=== PATIENT | male | born 1950 | race Caucasian/White ===

== ENCOUNTER 2016-10-04 13:49 | Observation (INO) | payer BC ==
--- NOTE | ~2016-10-04 | DS ---
Discharge Summary [facility] [address] [place]. [address] NAME: DANA SOSA : 50 STATUS : DIS Bautista PAT#: [id number] AGE: 66 ADM/REG DATE : 10/04/16 MR#: [id number] REPORT SERV DATE: 10/06/16 DICTATED BY: PHIL SANDERS DATE: 10/05/16 REPORT STATUS : Draft TRANSCRIBED BY: MODL DATE: 10/05/16 ADMISSION DATE: 10/04/2016 DISCHARGE DATE: 10/05/2016 DISCHARGE DIAGNOSES: 1. Uncontrolled hypertension, mainly secondary to noncompliance. 2. Uncontrolled anxiety and depression. 3. Unintentional weight loss due to poor appetite probably related to the depression above. 4. Coronary artery disease. 5. Peripheral artery disease. 6. Chronic obstructive pulmonary disease. 7. Continued smoking. 8. Chronic kidney disease that is at baseline with creatinine of 1.75. CONSULTANTS: Psychiatry. PROCEDURES: None. HOSPITAL COURSE: This is a 66-year-old gentleman who was admitted to the hospital with uncontrolled hypertension as well as uncontrolled depression and anxiety. For details please refer to my own H and P dictated yesterday. In summary, the patient was admitted and was started on p.r.n. antihypertensives along with his home diltiazem. At baseline, patient is intolerant to a lot of the antihypertensives that was given to him in the past, and he simply decided not to take them. The patient is intolerant to KIMBERLY or ARB due to his renal function, and the patient has been tolerant to clonidine because it makes him feel woozy. The patient is also intolerant to beta-sonia therapy because it tears up his stomach. The patient thankfully tolerated hydralazine and thus patient will be discharged home on hydralazine. The patient does already have Coreg prescriptions at home that he will give a try. The bigger issue was the patient had an uncontrolled depression along with uncontrolled chronic back pain. The uncontrolled back pain seem to be related to his uncontrolled depression. The patient was seen by Psychiatry who stopped his nightly temazepam and started him on 0.25 mg of Xanax in the morning and 0.5 mg of Xanax before bed. From my end, I have discontinued his [place], and we will start him on Percocet instead. The patient in general was quite anxious and required a lot of reassurance and counseling. The patient was also counseled against continued smoking. The patient understands that a lot of his ongoing issues will be better managed as an outpatient. The patient already has an appointment with his PCP early next week, and he understands that long-term follow up is more important than short-term relief. I recommended the patient to follow up not only with PCP but potentially establish care with a spine surgery as well as Psychiatry as an outpatient and possibly pain management. The patient otherwise did not have any other acute medical issues. The patient's labs have been stable to include CBC and electrolytes as well as pre-albumin level, TSH, and inflammatory markers. The patient is now being discharged home with close outpatient followup instructions. DISCHARGE MEDICATIONS: Discharge Summary [address] [address] NAME: DANA SOSA : 50 STATUS : DIS Bautista PAT#: [id number] AGE: 66 ADM/REG DATE : 10/04/16 MR#: [id number] REPORT SERV DATE: 10/06/16 DICTATED BY: PHIL SANDERS DATE: 10/05/16 REPORT STATUS : Draft TRANSCRIBED BY: KODY DATE: 10/05/16 1. Hydralazine 50 mg p.o. q.8 hours. 2. Percocet 7.5/325 one tab p.o. q.[address] of Vicodin 7.5/325. The patient will be given a total of 20 tablets. 3. Xanax 0.25 mg in the morning and 0.5 mg in the evening as recommended by Psychiatry. The patient will be given 2 week supply. This will be in place of temazepam that he was already taking at home. Otherwise, no changes to his medications. FOLLOWUP: Please follow up with PCP in the next one to two weeks, again the patient already has an appointment with his PCP early next week. Total of almost an hour spent in coordinating this patient's discharge today including more than 30 minutes that I spent counseling the patient. CHRISTINE/KODY Phil Sanders MD / [id number] CC: MD Heaven Walters M.D.
--- NOTE | ~2016-10-04 | HP ---
History And Physical [address] [place]. [address] NAME: DANA SOSA : 50 STATUS : ADM Bautista PAT#: [id number] AGE: 66 ADM/REG DATE : 10/04/16 MR#: [id number] REPORT SERV DATE: 10/04/16 DICTATED BY: PHIL SANDERS DATE: 10/04/16 REPORT STATUS : Draft TRANSCRIBED BY: MODL DATE: 10/04/16 DATE OF ADMISSION: 10/04/2016 CHIEF COMPLAINT: Uncontrolled depression and uncontrolled hypertension. HISTORY OF PRESENT ILLNESS: This is a 66-year-old gentleman with history of hypertension, COPD, smoking, coronary artery disease, peripheral artery disease amongst many other medical problems, presenting with an uncontrolled hypertension and an uncontrolled depression. The patient reports that it has been an ongoing issue for the past several months. The patient feels that he has really been depressed since he was last hospitalized back in March of 2016 for uncontrolled hypertension. The patient was tried on Zoloft as well as Remeron without much response. The patient feels that he also takes temazepam on nightly basis and it actually helps with his depression a lot, and after his on-line research, he feels that he needs to be on benzodiazepine on daily basis to help with his depression and to improve his baseline functional status. The patient reports that with the depression, the patient has had poor appetite and has lost about 15 pounds since April unintentionally. The patient also has some insomnia. In terms of his blood pressure, the patient reports that he has not been compliant with his blood pressure medications, mainly because they hurt his stomach. The patient does not take Coreg and the patient also does not take his clonidine patch. The patient takes Cardizem as the only means to control his blood pressures. The patient is not tolerant to hydrochlorothiazide or lisinopril. The patient, otherwise, has not tried any other antihypertensives. The patient also has multiple other complaints including chronic back pain that he has had for 48 years. The patient feels that it has gotten worse since he hurt it during a cardiac cath while he was being moved from the operating table to his bed that was about six months ago. The patient feels that the poorly controlled back pain makes him more depressed. The patient is on Vicodin at baseline to control his pain. In the ER, the patient was found to be afebrile. The patient was found to be quite hypertensive with blood pressure 202/114. By the time of my encounter with the patient, the patient's blood pressure was down to 162/98. The patient was also quite tachycardic upon arrival with heart rate of 127, but that improved to 95 by the time of my encounter with the patient. Initial lab evaluation was all very benign. Internal Medicine consultation was requested for admission of the patient for further evaluation and care. REVIEW OF SYSTEMS: The patient denies any fevers or chills. Also, 14-point review of systems reviewed and negative other than mentioned above. MEDICATIONS: Medication list is still pending at this time. PAST MEDICAL HISTORY: 1. Hypertension. 2. Coronary artery disease. 3. Peripheral artery disease. History And Physical [address] [address] NAME: DANA SOSA : 50 STATUS : ADM Bautista PAT#: [id number] AGE: 66 ADM/REG DATE : 10/04/16 MR#: [id number] REPORT SERV DATE: 10/04/16 DICTATED BY: PHIL SANDERS DATE: 10/04/16 REPORT STATUS : Draft TRANSCRIBED BY: MODAsaf DATE: 10/04/16 4. Chronic kidney disease with baseline creatinine of 1.75. 5. COPD. 6. Continued smoking. 7. History of CVA. 8. Chronic pain management. 9. BPH. PAST SURGICAL HISTORY: 1. Bilateral carotid endarterectomy. 2. Renal artery stents. 3. Cardiac stents x5. FAMILY HISTORY: Noncontributory and negative. SOCIAL HISTORY: The patient has a [id number] history of smoking, but he continues to smoke. The patient does not drink alcohol or use any illicit drugs. PHYSICAL EXAMINATION: VITAL SIGNS: Temperature 98.0, blood pressure 162/98, pulse 95, respiratory rate is 20, and saturating 95% on room air. GENERAL: The patient is alert and oriented x3 with no focal neurologic deficits. The patient is awake. He is quite irritable, but otherwise, does not appear to be in acute distress, and he is cooperative. NECK: No JVD. No lymphadenopathy. Normal thyroid. CHEST: No midline sternotomy scar and no tenderness to palpation. LUNGS: Clear to auscultation bilaterally with normal respiratory effort on room air. CARDIOVASCULAR: Regular rate and rhythm, slightly tachycardic, but otherwise, no murmurs, rubs, or gallops, and PMI is nondisplaced. ABDOMEN: Soft and nontender with active bowel sounds and no organomegaly. EXTREMITIES: No edema. Normal distal pulses. No calf tenderness. SKIN: Clean, dry, warm, and intact. LABORATORY DATA: Sodium is 137, potassium 4.1, chloride 104, BUN 17, creatinine 1.75, glucose 103, calcium 9.4, and magnesium 2.3. White blood cell count is 10.1, hemoglobin 15.3, and platelets 235. INR is 0.9. Troponin is 0.19. ASSESSMENT: This is a 66-year-old gentleman with history of hypertension, coronary artery disease, peripheral artery disease, chronic kidney disease, amongst many other medical conditions, presenting with uncontrolled hypertension and uncontrolled depression. 1. Uncontrolled hypertension, mainly secondary to noncompliance. The patient has been intolerant to many antihypertensives and the patient has not been taking many of his antihypertensive medications with complaints of not being able to tolerate it due to either stomach issues or feeling lousy. 2. Uncontrolled depression. The patient has tried Zoloft and Remeron without response. 3. Unintentional weight loss due to poor appetite. This is likely related to the uncontrolled depression. 4. Coronary artery disease. History And Physical [address] [address] NAME: DANA SOSA : 50 STATUS : ADM Bautista PAT#: [id number] AGE: 66 ADM/REG DATE : 10/04/16 MR#: [id number] REPORT SERV DATE: 10/04/16 DICTATED BY: PHIL SANDERS DATE: 10/04/16 REPORT STATUS : Draft TRANSCRIBED BY: MODL DATE: 10/04/16 5. Peripheral artery disease artery disease. 6. Chronic obstructive pulmonary disease. 7. Continued smoking. 8. Chronic kidney disease, that is at baseline. PLAN: My plan is to admit the patient under observation overnight. The patient will be monitored under telemetry. The patient's blood pressure is already better and I will continue to monitor his blood pressure and treat as needed. For the uncontrolled depression, I will ask Psychiatry to come and see the patient. For uncontrolled back pain, I will give additional p.r.n. analgesia. For smoking, extensive counseling provided regarding cessation. Otherwise, for the rest of stable past medical conditions, including coronary artery disease, peripheral artery disease, chronic kidney disease, et al, I will continue home medications. Standard DVT prophylaxis. The patient is full code at this time. YSC/MODL Phil Sanders MD / [id number] CC: Morgan Rodriguez Jr, MD Karin Boeck, M.D.
--- NOTE | ~2016-10-04 | CN ---
Consultation Report [facility] [address] [place]. [address] NAME: DANA SOSA : 50 STATUS : ADM Bautista PAT#: [id number] AGE: 66 ADM/REG DATE : 10/04/16 MR#: [id number] REPORT SERV DATE: 10/05/16 DICTATED BY: NIR CASTAÑEDA DATE: 10/05/16 REPORT STATUS : Draft TRANSCRIBED BY: MODL DATE: 10/05/16 PSYCHIATRIC CONSULTATION DATE OF CONSULTATION: 10/05/2016 I reviewed this patient's current and old medical records. HISTORY OF PRESENT ILLNESS: He was admitted with uncontrolled hypertension and severe depression. Over the past two years or so, he has had three previous admissions to this hospital with hypertensive urgency. He reports that he has been depressed since he had a stroke about one year ago and more severely so since his last admission to this hospital in 03/2016. PAST PSYCHIATRIC HISTORY: He reports that he had a past trial on Zoloft without any benefit. He is currently taking Remeron 30 mg h.s. Again, without apparent benefit. He feels that the temazepam which is prescribed for insomnia is the only medicine that has helped his depression and because of this, he would like to try to take a benzodiazepine on an ongoing basis. He is prescribed hydrocodone APAP b.i.d. for back pain, but he actually takes it only once daily in the morning. He has no history of substance abuse. SOCIAL HISTORY: He has a [employer] business. He reports that he has experienced difficulty with cognition and possibly with dexterity since he had his CVA about one year ago. His and he are trying to keep the business going. He has been for 47 years. He and his have 5 children. FAMILY HISTORY: No psychiatric issues. No history of mood disorders. MENTAL STATUS: He was very cooperative in attitude. He likes to be fully informed about all medical and medication issues. He keeps a fairly extensive folder on his medical history and drug information. His mood was dysphoric. His affect was full and appropriate. His thinking was logical. He had no delusions. He had no hallucinations. He was oriented to time, place, and person. He demonstrated good recent and remote memory. DIAGNOSIS: Depressive disorder, not otherwise specified, post cerebrovascular accident. RECOMMENDATIONS: 1. Continue Remeron 30 mg at bedtime. 2. Discontinue temazepam. 3. Start Xanax 0.25 mg a.m. and 0.5 mg at bedtime. 4. I will follow during this hospitalization. DK/TICOL Consultation Report [facility] [address] [place] [place] [address] NAME: DANA SOSA : 50 STATUS : ADM Bautista PAT#: [id number] AGE: 66 ADM/REG DATE : 10/04/16 MR#: [id number] REPORT SERV DATE: 10/05/16 DICTATED BY: NIR CASTAÑEDA DATE: 10/05/16 REPORT STATUS : Draft TRANSCRIBED BY: KODY DATE: 10/05/16 Nir Castañeda M.D. / [id number] CC: MD Heaven Walters M.D.
[~2016-10-04 13:49] MED LIST: ADVIL PO; ASAB PO; B121000P IM/SC; BEN GAY1.25 OZ TOP; CARDCD180 PO; CARDCD240 PO; CARTIA XT180 MG/24 PO; CAT1 PO; CATAPRES2 TOP; CATAPRES3 TOP; CATPATCH1 TOP; CIP5 PO; COREG25 PO; DIOV80 PO; FISH OIL OTC PO; FLOMAX4 PO; FLONASE NAS; HALF81 PO; LIPITOR40 PO; NICODERM C21 MG/241 TOP; NORCO1 TA1 PO; NORCO1 TA2 PO; NORV10 PO; PLAVIX PO; PROAIR HFA INH; SYMBICORT 160/41 INH INH; VICODIN ES1 TAB PO; VITAMIN B PO
[2016-10-04 15:16] LABS: BASOPHILS 0.2 %; BASOPHILS ABSOLUTE 0.02 10/3/uL (0.0-0.16); EOSINOPHILS 0.6 %; EOSINOPHILS ABSOLUTE 0.06 10/3/uL (0.0-0.53); ER CBC TAT 0 Hrs 07 Mins; HEMATOCRIT 43.1 % (40.0-51.0); HEMOGLOBIN 15.3 g/dL (13.6-17.8); IMMATURE GRANULOCYTES 0.2 %; IMMATURE GRANULOCYTES ABSOLUTE 0.02 10/3/uL (0.0-0.11); LYMPHOCYTES 12.4 %; LYMPHOCYTES ABSOLUTE 1.26 10/3/uL (0.67-4.30); MEAN CORPUS HGB CONC 35.5 g/dL (32.0-36.0); MEAN CORPUSCULAR HEMOGLOB 33.9 pg (26.0-34.0); MEAN CORPUSCULAR VOLUME 95.6 fL (80-100); MEAN PLATELET VOLUME 9.2 fL (9.2-13.0); MONOCYTES 8.3 %; MONOCYTES ABSOLUTE 0.84 10/3/uL (0.21-1.20); NEUTROPHILS 78.3 %; NEUTROPHILS ABSOLUTE 7.94 10/3/uL (2.02-8.40); PLATELET COUNT 235 10/3/uL (150-400); RBC DISTRIBUTION WIDTH 13.4 % (12.0-16.0); RED CELL COUNT 4.51 10/6/uL (4.7-6.1); WHITE BLOOD CELLS 10.1 10/3/uL (4.5-10.5)
[2016-10-04 15:17] LABS: MANUAL DIFF NO %
[2016-10-04 15:23] LABS: INTERNATIONAL NORMAL RATI 0.9 UNITS (-); PARTIAL THROMBO TIME 26.6 SEC (22.5-37.2); PROTIME (NOT ORD) 12.3 SEC (12.0-14.5)
[2016-10-04 15:33] LABS: ALKALINE PHOSPHATASE 136 U/L (45-117); BUN (BLOOD UREA NITROGEN) 17 MG/DL (6-23); CALCIUM, SERUM 9.4 MG/DL (8.5-10.4); CHLORIDE, SERUM 104 MMOL/L (96-112); CO2 (CARBON DIOXIDE) 27 MMOL/L (24-34); CREATININE 1.75 MG/DL (0.70-1.30); GFR AFRICAN AMERICAN 46 ML/MIN (>=60); GFR NON AFRICAN AMERICAN 40 ML/MIN (>=60); GLUCOSE, SERUM 103 MG/DL (60-99); POTASSIUM, SERUM 4.1 MMOL/L (3.5-5.3); SALICYLATE 7.5 MG/DL (-); SGOT(AST) 19 U/L (5-40); SGPT(ALT) 15 U/L (5-65); SODIUM, SERUM 137 MMOL/L (135-148); TOTAL BILIRUBIN 0.4 MG/DL (0-1.2); TOTAL PROTEIN 7.8 G/DL (6.0-8.5)
[2016-10-04 15:34] LABS: ACETAMINOPHEN LEVEL (TYLENOL) < 2.0 MCG/ML (10.0-20.0); ALBUMIN 3.9 G/DL (3.5-5.0); ALCOHOL < 10 MG/DL (0); CHEST PAIN PROFILE TAT 0 Hrs 25 Mins; GLOBULIN 3.9 G/DL (2.5-4.1); TROPONIN I 0.19 NG/ML (<0.05)
[2016-10-04 16:36] LABS: ASCORBIC ACID (UR NOT ORDER) NEG (NEG); BILIRUBIN, URINE NEGATIVE (NEG); ER URINALYSIS TAT 0 Hrs 09 Mins; KETONE, URINE NEGATIVE (NEG); LEUKOCYTE ESTERASE(NOT OR NEG (NEG); NITRITE (URINE) NEG (NEG); WBC (NOT ORDERED) (RFLEX) < 1 (0-5)
[2016-10-04 16:48] LABS: AMPHETAMINES (NOT ORD) NEG (NEG); BARBITURATES (NOT ORDERED NEG (NEG); BENZODIAZEPINES (NOT ORD) POS (NEG); CANNABINOIDS (THC) NEG (NEG); COCAINE (NOT ORDERED) NEG (NEG); OPIATES POS (NEG); PHENCYCLIDINE(PCP) NEG (NEG); TRICYCLICS NEG (NEG)
[2016-10-04] MEDS ORDERED: NORCO1 TA2 PO (18:49)
[2016-10-04] MEDS ORDERED: REMERON30 MG PO (18:50)
[2016-10-04] MEDS ORDERED: PLAVIX PO (18:50)
[2016-10-04] MEDS ORDERED: REST15 PO (18:50)
[2016-10-04] MEDS ORDERED: CARDCD180 PO (18:50)
[2016-10-04] MEDS ORDERED: NASONEX NAS (18:51)
[2016-10-04] MEDS ORDERED: PROAIR HFA INH (18:51)
[2016-10-04 22:19] LABS: FREE T4 1.03 NG/DL (0.76-1.46)
[2016-10-04 22:20] LABS: TROPONIN I 0.19 NG/ML (<0.05); ULTRASENSITIVE TSH 1.32 MCIU/ML (0.358-3.740)
[2016-10-05 05:16] LABS: TROPONIN I 0.17 NG/ML (<0.05)
[2016-10-05 05:36] LABS: C-REACTIVE PROTEIN 7.4 MG/L (<8.0); PREALBUMIN 20.9 MG/DL (17.0-43.0)
[2016-10-05] MEDS ORDERED: X5 PO (13:02)
[2016-10-05] MEDS ORDERED: X25 PO ×3 (13:02→13:10)
[2016-10-05] MEDS ORDERED: PERCOCET 7.5/321 TAB PO (13:11)
[2016-10-05] MEDS ORDERED: APRES50 PO (13:12)
[2017-01-04] MEDS ORDERED: NORCO1 TA2 PO (16:18)
[2017-01-04] MEDS ORDERED: REST15 PO (16:19)
== END 2016-10-05 14:08 | disposition home or self-care (01) ==
LOC: ER 13:49 → CDU1 18:21
PROVIDERS: Emergency Medicine; Internal Medicine
DX: I12.9 Hypertensive chronic kidney disease with stage 1 through stage 4 chronic kidney disease, or unspecified chronic kidney disease (principal); N18.9 Chronic kidney disease, unspecified; F32.9 Major depressive disorder, single episode, unspecified; F41.9 Anxiety disorder, unspecified; J44.9 Chronic obstructive pulmonary disease, unspecified; I25.10 Atherosclerotic heart disease of native coronary artery without angina pectoris; I73.9 Peripheral vascular disease, unspecified; N40.0 Benign prostatic hyperplasia without lower urinary tract symptoms; G89.29 Other chronic pain; Z98.890 Other specified postprocedural states; F17.200 Nicotine dependence, unspecified, uncomplicated; Z79.01 Long term (current) use of anticoagulants; Z79.899 Other long term (current) drug therapy; Z86.73 Personal history of transient ischemic attack (TIA), and cerebral infarction without residual deficits
CPT/HCPCS: 71020; 80048; 80053; 80305; 80307; 81001; 83735; 84134; 84439; 84443; 84484; 85025; 85610; 85652; 85730; 86140; 93005; 96372; 96374; 96375; 96376; 99285; A9270-GY; G0378; J0360